=== PATIENT | male | born 1985 | race Caucasian/White ===

== ENCOUNTER 2025-02-06 11:00 | Emergency (ER) | payer OTHER ==
[~2025-02-06] VITALS: Ht 177.8 cm; Wt 83.2 kg
[2025-02-06 13:23] VITALS: BP 123/70; TEMP 97.6; O2SAT 98
== END 2025-02-06 14:30 | disposition home or self-care (01) ==
LOC: M ED 11:00
DX: R20.2 Paresthesia of skin (principal)